=== PATIENT | male | born 1980 | race Two or more races ===

== ENCOUNTER → 2018-04-25 | Outpatient (CLI) | payer BC ==
--- NOTE | 2018-04-25 16:04 | RAD ---
Complete abdominal ultrasound 04/25/2018 3:30 PM Clinical History: GENERALIZED ABD PAIN Technique: Ultrasound examination of the abdomen was performed, and multiple static images were submitted for review. Comparison: None Findings: The visualized portions of the pancreas are within normal limits. The visualized aorta and IVC are unremarkable. The gallbladder is normal in appearance without wall thickening, stones, or sludge. No pericholecystic fluid is seen. Sonographic Jerez's sign is negative. The common bile duct measures 4-5 mm in diameter which is within normal limits. The liver is top normal in size measuring 18 cm longitudinally. The liver is unremarkable in echotexture. No intrahepatic biliary ductal dilatation is seen. No focal hepatic lesions are identified. There is borderline enlargement of the spleen measuring 12.7 cm longitudinally The bilateral kidneys are normal in appearance without evidence of obstructive uropathy, nephrolithiasis, or focal renal lesion. Right kidney measures 12.2 cm in length. Left kidney measures 14.2 cm in length. Impression: 1. Borderline splenomegaly 2. Otherwise unremarkable abdominal ultrasound Electronically signed by: Robert Mora MD (04/25/2018 4:01 PM) [id number]
== END | disposition home or self-care (01) ==
LOC: US 15:16
PROVIDERS: ATTEND Family Medicine
DX: R10.84 Generalized abdominal pain (principal)
CPT/HCPCS: 76700

== ENCOUNTER → 2019-10-18 | Outpatient (CLI) | payer BC ==
--- NOTE | 2019-10-18 10:42 | KCIC ---
Chest radiograph 10/18/2019 8:04 AM INDICATION: Shortness of air COMPARISON: 08/01/2018 TECHNIQUE: Frontal and lateral views of the chest are provided. FINDINGS: The cardiomediastinal silhouette is within normal limits. There are no pleural effusions. There is no pulmonary vascular congestion. There is no pneumothorax. The lungs are clear. No significant osseous abnormality is identified. IMPRESSION: No acute cardiopulmonary process. Electronically signed by: Mariposa Hobbs MD (10/18/2019 10:39 AM) [id number]
== END | disposition home or self-care (01) ==
LOC: KCIC 08:10
PROVIDERS: ATTEND Family Medicine
DX: R06.02 Shortness of breath (principal)
CPT/HCPCS: 71046

== ENCOUNTER → 2019-10-18 | Outpatient (CLI) | payer BC ==
--- NOTE | 2019-10-18 08:51 | RAD ---
INDICATION: Reason: Generalized Abdominal Pain / Spl. Instructions: / History: COMPARISON: April 2018 TECHNIQUE: Grayscale and color ultrasound images obtained through the abdomen. FINDINGS: Aorta/IVC: Portions are not well seen. Pancreas: Not well seen secondary to overlying bowel gas obscuring. Liver: Echogenic. Gallbladder: Small amount of gallbladder sludge. Common Bile Duct: Not dilated. Right Kidney: No hydronephrosis. Left Kidney: No hydronephrosis. Spleen: 14 cm. IMPRESSION: * Liver is echogenic. Nonspecific but can be seen with fatty infiltration. * Small amount of internal echoes within the gallbladder which could be from sludge. Electronically signed by: Carlos Eduardo Crowder MD (10/18/2019 8:48 AM) [id number]
== END | disposition home or self-care (01) ==
LOC: US 08:04
PROVIDERS: ATTEND Family Medicine
DX: R10.84 Generalized abdominal pain (principal)
CPT/HCPCS: 76700